=== PATIENT | male | born 1990 | race Caucasian/White ===

== ENCOUNTER 2018-09-16 11:20 | Day surgery (SDC) | payer OTHER ==
[~2018-09-16] VITALS: Ht 162.6 cm; Wt 77.3 kg
[2018-09-16] VITALS (15 sets, daily range): BP systolic 109–137; BP diastolic 62–88; PULSE 80–102; RESP 14–19; Ht 162.6 cm; Wt 77.3 kg
[~2018-09-16 11:20] MED LIST: SEVOFLURANE 15 MIN ONE
[2018-09-16] MEDS ORDERED: SOD CHLORIDE 0.9% 1,000 ML IV SCH (12:00)
[2018-09-16] MEDS ORDERED: CEFAZOLIN 2 GM/50 ML (PMX) 50 ML IVPB ONE (12:00)
[2018-09-16] MEDS ORDERED: BUPIVACAINE 0.5% (SDV) 30 ML INJ ONE (13:15)
[2018-09-16] MEDS ORDERED: LIDOCAINE 1% (MPF) 30 ML INJ ONE (13:16)
[2018-09-16] MEDS ORDERED: BUPIVACAINE 0.25% (MPF) 30 ML INJ ONE (13:16)
--- NOTE | 2018-09-16 13:16 | PREAC ---
Date/Time of Note Date/Time of Note DATE: 09/16/18 TIME: 13:15 Anesthesia Eval and Record Evaluation Time Pre-Procedure Interview DATE: 09/16/18 TIME: 13:15 Age 28 Sex male NPO: 8 hrs Preoperative diagnosis leg masses Planned procedure leg mass resection Past Medical History Past Medical History: None Surgery & Anesthesia Issues No known issue Meds Anticoagulation: No Beta Jose within 24 hr: No Reason Beta Jose not given: Pt. not on B-Jose No Active Prescriptions or Reported Meds Current Medications Sodium Chloride 1,000 ml @ 75 mls/hr [id number] IV ; Start 09/16/18 at 12:00; Stop 09/17/18 at 01:19 Meds reviewed: Yes Allergies Coded Allergies: No Known Drug Allergies (Unverified Allergy, Unknown, 09/16/18) Allergies Reviewed: Yes Labs/Studies Labs Reviewed: Reviewed by anesthesiologist test: N/A Pre-procedure Exam Last vitals Vital Signs Date Temp Pulse Resp B/P (MAP) Pulse Ox O2 O2 Flow FiO2 Time Delivery Rate 09/16/18 99.1 88 16 124/76 96 12:21 (92) Airway: Adequate mouth opening, Adequate thyromental dist Mallampati: Mallampati III Teeth: Normal Lung: Normal Heart: Normal ASA Physical Status ASA physical status: 1 Emergency: None Pre-operative Attestations Prior to commencing anesthesia and surgery, the patient was re-evaluated, there was verification of: *The patient's identity *The results of appropriate recent lab work and preoperative vital signs *The above evaluation not changing prior to induction *Anesthetic plan, risk benefits, alternative and complications discussed with patient/family; questions answered; patient/family understands, accepts and wishes to proceed. SAVANNA HOFFMAN DO Sep 16, 2018 13:16
[2018-09-16] MEDS ORDERED: LIDOCAINE 2% (MDV) 20 ML INJ ONE (13:20)
[2018-09-16] MEDS ORDERED: ETOMIDATE 20 MG INJ ONE (13:39)
[2018-09-16] MEDS ORDERED: LIDOCAINE 2% (SDV) 5 ML INJ ONE (13:39)
[2018-09-16] MEDS ORDERED: PROPOFOL 20 ML ONE (13:39)
[2018-09-16] MEDS ORDERED: MIDAZOLAM 1 MG/ML 2 ML INJ ONE (13:40)
[2018-09-16] MEDS ORDERED: ROPIVACAINE 0.5 % 30 ML VIAL ONE (13:47)
[2018-09-16] MEDS ORDERED: FENTAnyl 50 MCG/ML VIAL ONE (13:47)
[2018-09-16] MEDS ORDERED: DEXAMETHASONE 4 MG/ML 5 ML INJ ONE (13:48)
[2018-09-16] MEDS ORDERED: LIDOCAINE 1% (MDV) 20 ML INJ ONE (13:56)
[2018-09-16] MEDS ORDERED: CEFAZOLIN 1 GM INJ ONE (13:58)
[2018-09-16] MEDS ORDERED: ONDANSETRON 4 MG INJ ONE (14:00)
[2018-09-16] MEDS ORDERED: KETOROLAC 30 MG INJ ONE (14:14)
[2018-09-16] MEDS ORDERED: HYDROCODONE/APAP (5/325) TAB PO ONE (14:30)
--- NOTE | 2018-09-16 14:33 | OPR ---
Date/Time of Note Date/Time of Note DATE: 09/16/18 TIME: 14:29 Operative Report Procedure Date: Sep 16, 2018 Preoperative Diagnosis right arm multiple masses Postoperative Diagnosis same Operation/Procedure Performed 1. excision of right upper leg mass 20 cm mass 15 cm incision 2. localized adjacent tissue transfer with the use of skin flaps 30 sq cm defect of right leg 3. excision of right lower lateral thigh mass 6 cm mass 8 cm incision 4. localized adjacent tissue transfer with the use of skin flaps 16 sq cm defect of right leg 5. excision of right lower medial thigh mass 15 cm mass 11 cm incision 6. localized adjacent tissue transfer with the use of skin flaps 22 sq cm defect of right leg 7. therapeutic injection of subcutaneous local anesthesia Surgeon see signature line Worm Grower none Anesthesia Type: general Estimated Blood Loss: 10 - 50 ml's Transfusion none Specimen right upper leg mass right lower lateral thigh mass right lower medial thigh mass Grafts/Implants none Complications none Pt Condition Post Procedure: stable Indications This is a 28-year-old male with multiple masses all over his extremities. He requires surgical excision. Risks alternatives benefits and percent were discussed the patient. 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 Ample time was given for questions and all questions were answered. Patient expressed understanding of these risks and expressed consent to his operation. Procedure Description Patient is taken to the OR and prepped and draped in usual sterile fashion. Surgical time was performed. IV antibiotics are given. Transverse incision is made over the right upper thigh mass. Dissection with cautery was carried onto the mass and the mass was circumferentially excised. The masses are resected in multiple layers. Good hemostasis established. Due to large tissue defect localized adjacent to his transfer with these of skin flaps were performed. Multilayer closure with interrupted 3-0 Vicryl and skin ralph. Additional transverse incision was made to the right lateral lower thigh. Dissection with cautery was carried onto the mass and the masses are circumferentially excised. Good hemostasis established. Due to the large tissue defect localized adjacent to his transfer with these of skin flaps were performed. Multilayer closure with interrupted 3-0 Vicryl and skin ralph. Right lower medial thigh incision was made transversely over the mass. Dissection with cautery was carried onto the mass and the mass was CIRCUMFERENTIALLY excised. Good hemostasis status. Due to tissue defect localized adjacent to his transfer with these of skin flaps were performed. Multilayer closure with interrupted 0 Vicryl and skin ralph. Therapeutic contains local anesthesia was injected at the incision site. Dry dressings and Coban is placed over the leg. Evaristo SPEARS Sep 16, 2018 14:33
--- NOTE | 2018-09-16 14:46 | PAC ---
Date/Time of Note Date/Time of Note DATE: 09/16/18 TIME: 14:45 Post-Anesthesia Notes Post-Anesthesia Note Last documented vital signs Vital Signs Date Temp Pulse Resp B/P (MAP) Pulse Ox O2 O2 Flow FiO2 Time Delivery Rate 09/16/18 98 70 21 125/65 100 1445 Activity: WNL Respiratory function: WNL Cardiovascular function: WNL Mental status: Baseline Pain reasonably controlled: Yes Hydration appropriate: Yes Nausea/Vomiting absent: Yes SAVANNA HOFFMAN DO Sep 16, 2018 14:46
== END 2018-09-16 16:20 | disposition home or self-care (01) ==
LOC: SDS 11:20
PROVIDERS: ATTEND Surgery
DX: D17.23 Benign lipomatous neoplasm of skin and subcutaneous tissue of right leg (principal)
CPT/HCPCS: 88307; J0690; J1100; J1885; J2250; J2405; J2795; J3010

== ENCOUNTER 2018-11-11 06:21 | Day surgery (SDC) | payer OTHER ==
[2018-11-11] VITALS (15 sets, daily range): BP systolic 80–136; BP diastolic 48–91; PULSE 75–108; RESP 12–20; Ht 162.6 cm; Wt 79.0 kg
[~2018-11-11] VITALS: Ht 162.6 cm; Wt 79.0 kg
[2018-11-11] MEDS ORDERED: CEFAZOLIN 1 GM INJ ONE (07:00)
[2018-11-11] MEDS ORDERED: CEFAZOLIN 2 GM/50 ML (PMX) 50 ML IVPB SCH (08:00)
[2018-11-11] MEDS ORDERED: SOD CHLORIDE 0.9% 1,000 ML IV SCH (08:00)
[2018-11-11] MEDS ORDERED: BUPIVACAINE 0.25% (MPF) 30 ML INJ ONE (09:44)
--- NOTE | 2018-11-11 09:53 | PREAC ---
Date/Time of Note Date/Time of Note DATE: 11/11/18 TIME: 09:49 Anesthesia Eval and Record Evaluation Time Pre-Procedure Interview DATE: 11/11/18 TIME: 09:49 Age 28 Sex male NPO: 8 hrs Preoperative diagnosis mass on rt leg Planned procedure 3 mass removal rt leg Past Medical History Past Medical History: None Surgery & Anesthesia Issues Other issues, No known issue Meds Anticoagulation: No Beta Jose within 24 hr: No Reason Beta Jose not given: Pt. not on B-Jose No Active Prescriptions or Reported Meds Current Medications Sodium Chloride 1,000 ml @ 75 mls/hr [id number] IV Last administered on 11/11/18at 07:13; Admin Dose 75 MLS/HR; Start 11/11/18 at 08:00; Stop 11/11/18 at 20:00 Meds reviewed: Yes Allergies Coded Allergies: No Known Drug Allergies (Unverified Allergy, Unknown, 11/11/18) Allergies Reviewed: Yes Labs/Studies Labs Reviewed: Reviewed by anesthesiologist test: N/A Pre-procedure Exam Last vitals Vital Signs Date Temp Pulse Resp B/P (MAP) Pulse Ox O2 O2 Flow FiO2 Time Delivery Rate 11/11/18 97.8 75 16 126/91 97 07:05 (103) Airway: Adequate mouth opening Mallampati: Mallampati II Teeth: Normal Lung: Normal Heart: Normal ASA Physical Status ASA physical status: 1 Emergency: None Planned Anesthetic General/MAC: ETT Pre-operative Attestations Prior to commencing anesthesia and surgery, the patient was re-evaluated, there was verification of: *The patient's identity *The results of appropriate recent lab work and preoperative vital signs *The above evaluation not changing prior to induction *Anesthetic plan, risk benefits, alternative and complications discussed with patient/family; questions answered; patient/family understands, accepts and wishes to proceed. SELENE HOPSON MD Nov 11, 2018 09:53
[2018-11-11] MEDS ORDERED: FENTAnyl 50 MCG/ML VIAL ONE (10:01)
[2018-11-11] MEDS ORDERED: HYDROmorphONE 2 MG/ML SYG ONE (10:01)
[2018-11-11] MEDS ORDERED: SUCCINYLCHOLINE CHLORIDE 100 MG/5 ML SYG IV ONE (10:01)
[2018-11-11] MEDS ORDERED: PROPOFOL 20 ML ONE (10:01)
[2018-11-11] MEDS ORDERED: ONDANSETRON 4 MG INJ ONE (10:36)
--- NOTE | 2018-11-11 10:57 | OPR ---
Date/Time of Note Date/Time of Note DATE: 11/11/18 TIME: 10:53 Operative Report Procedure Date: Nov 11, 2018 Preoperative Diagnosis multiple tumors over the body Postoperative Diagnosis same Operation/Procedure Performed 1. excision of right proximal leg tumor 15 cm incision 20 cm tumor 2. localized adjacent tissue transfer with the use of skin flaps 30 sq cm defect of right upper leg 3. excision of right middle leg tumor 15 cm incision 22 cm tumor 4. localized adjacent tissue transfer with the use of skin flaps 30 sq cm defect of right middle leg 5. excision of right distal leg tumor 15 cm incision 23 cm tumor 6. localized adjacent tissue transfer with the use of skin flaps 30 sq cm defect of right distal leg 7. therapeutic injection of subcutaneous local anesthesia Surgeon see signature line Molded Candles Wicker none Anesthesia Type: general Estimated Blood Loss: 10 - 50 ml's Transfusion none Specimen right proximal leg tumor right middle leg tumor right distal leg tumor Grafts/Implants none Complications none Pt Condition Post Procedure: stable Indications This is a 28-year-old male with multiple leg tumors. He request surgical excision. Risks alternatives benefits and personally discussed the patient. Patient expressed understanding and requests surgical excision of the tumors. Patient also understands that he has multiple lung tumors and may need multiple operations to manage these tumors. Procedure Description Patient is taken to the OR and prepped and draped in usual sterile fashion. Surgical time was performed. IV antibiotics given. Transverse incision was made over the right proximal tumor. Dissection with cautery scant to tumor and tumor circumferentially excised. Good hemostasis status. Due to very large tissue defect localized adjacent to his transfer with these of skin flaps performed. Multilayer closure with interrupted 3-0 Vicryl and skin ralph. Therapy secondary to local anesthesia injected at the incision site. Attention was then paid to the right middle leg tumor. Transverse incision at the 15 toy de. Dissection with cardioscan to the tumor and the tumor circumferentially excised. Good hemostasis status. Due to tissue defect localization system extremities disc and flexes performed. Multilayer closure with interrupted 0 Vicryl and skin ralph. Therapeutic taste local anesthesia injected at incision site. Attention was then paid to the distal right leg tumor. Chest di sease with the 15 blade. Dissection with cautery segments of the tumor and the tumor circumferentially excised. Good hemostasis status. Due to the tissue defect localization just transfer with his skin flaps was performed. Multilayer closure with interrupted 3-0 Vicryl and skin ralph. Therapeutic subcutaneous local anesthesia was injected at the incision site. Dry dressings and pressure dressing and wrap with Caesar bandage was performed to augment hemostasis. Evaristo SPEARS Nov 11, 2018 10:57
[2018-11-11] MEDS ORDERED: HYDROmorphONE 1 MG/5 ML IV SYRINGE IV PRN ×2 (11:00)
[2018-11-11] MEDS ORDERED: DIPHENHYDRAMINE 50 MG INJ IV PRN (11:00)
[2018-11-11] MEDS ORDERED: HYDROCODONE/APAP (10/325) TAB PO ONE (11:00)
[2018-11-11] MEDS ORDERED: EPHEDrine SULFATE 50 MG/5 ML SYG IV PRN (11:00)
[2018-11-11] MEDS ORDERED: hydrALAzine 20 MG INJ IV PRN (11:00)
[2018-11-11] MEDS ORDERED: METOCLOPRAMIDE 10 MG INJ IV PRN (11:00)
[2018-11-11] MEDS ORDERED: ONDANSETRON 4 MG INJ IV PRN (11:00)
[2018-11-11] MEDS ORDERED: LABETALOL HCL 20MG INJ IV PRN (11:00)
[2018-11-11] MEDS ORDERED: MEPERIDINE 25 MG INJ IV PRN (11:00)
--- NOTE | 2018-11-11 11:20 | PAC ---
Date/Time of Note Date/Time of Note DATE: 11/11/18 TIME: 11:20 Post-Anesthesia Notes Post-Anesthesia Note Last documented vital signs Vital Signs Date Temp Pulse Resp B/P (MAP) Pulse Ox O2 O2 Flow FiO2 Time Delivery Rate 11/11/18 106 20 135/72 100 Mask 8.0 11:15 (93) 11/11/18 98.0 11:05 Activity: WNL Respiratory function: WNL Cardiovascular function: WNL Mental status: Baseline Pain reasonably controlled: Yes Hydration appropriate: Yes Nausea/Vomiting absent: No SELENE HOPSON MD Nov 11, 2018 11:20
== END 2018-11-11 15:20 | disposition home or self-care (01) ==
LOC: SDS 06:21
PROVIDERS: ATTEND Surgery
DX: D17.23 Benign lipomatous neoplasm of skin and subcutaneous tissue of right leg (principal)
CPT/HCPCS: 14301; 14302; 88307; J1170; J2405; J3010; Z7512; Z7610; J0690

== ENCOUNTER 2019-03-24 05:25 | Day surgery (SDC) | payer OTHER ==
[2019-03-23 15:25] VITALS: BMI 29.9
[~2019-03-24] VITALS: Ht 162.6 cm; Wt 78.6 kg
[2019-03-24] VITALS (13 sets, daily range): BP systolic 129–146; BP diastolic 70–91; PULSE 91–110; RESP 11–20; Ht 162.6 cm; Wt 78.6 kg
[2019-03-24] MEDS ORDERED: CEFAZOLIN 2 GM/50 ML (PMX) 50 ML IVPB ONE (06:30)
[2019-03-24] MEDS ORDERED: SOD CHLORIDE 0.9% 1,000 ML IV SCH (06:30)
[2019-03-24] MEDS ORDERED: BUPIVACAINE 0.25% (MPF) 30 ML INJ ONE ×2 (07:54→09:31)
[2019-03-24] MEDS ORDERED: HYDROmorphONE 1 MG/5 ML IV SYRINGE IV PRN ×3 (08:30)
[2019-03-24] MEDS ORDERED: ONDANSETRON 4 MG INJ IV PRN (08:30)
[2019-03-24] MEDS ORDERED: MEPERIDINE 25 MG INJ IV PRN (08:30)
[2019-03-24] MEDS ORDERED: DIPHENHYDRAMINE 50 MG INJ IV PRN (08:30)
[2019-03-24] MEDS ORDERED: PROPOFOL 20 ML ONE (08:44)
[2019-03-24] MEDS ORDERED: FENTAnyl 50 MCG/ML VIAL ONE (08:44)
[2019-03-24] MEDS ORDERED: MIDAZOLAM 1 MG/ML 2 ML INJ ONE (08:44)
[2019-03-24] MEDS ORDERED: SUCCINYLCHOLINE CHLORIDE 100 MG/5 ML SYG IV ONE (08:44)
[2019-03-24] MEDS ORDERED: LIDOCAINE 1% (MDV) 20 ML INJ ONE (08:45)
[2019-03-24] MEDS ORDERED: ONDANSETRON 4 MG INJ ONE (08:54)
[2019-03-24] MEDS ORDERED: ALBUTEROL 0.083% (NEB) 2.5 MG/3 ML AMP ONE (09:07)
[2019-03-24] MEDS ORDERED: KETOROLAC 30 MG INJ ONE (09:07)
[2019-03-24] MEDS ORDERED: DEXAMETHASONE 4 MG/ML 5 ML INJ ONE (09:07)
[2019-03-24] MEDS ORDERED: CEFAZOLIN 1 GM INJ ONE (09:20)
[2019-03-24] MEDS ORDERED: SUGAMMADEX SODIUM 200 MG/2 ML VIAL IV ONE (09:30)
[2019-03-24] MEDS ORDERED: MEPERIDINE 100 MG INJ ONE (09:46)
[2019-03-24] MEDS ORDERED: LIDOCAINE 2% (SDV) 5 ML INJ ONE (09:51)
[2019-03-24] MEDS ORDERED: ROCURONIUM 50 MG INJ ONE (09:52)
[2019-03-24] MEDS ORDERED: HYDROCODONE/APAP (5/325) TAB PO ONE (10:00)
== END 2019-03-24 15:11 | disposition home or self-care (01) ==
LOC: SDS 05:25
PROVIDERS: ATTEND Surgery
DX: D17.24 Benign lipomatous neoplasm of skin and subcutaneous tissue of left leg (principal)
CPT/HCPCS: 88307; J0690; J1100; J1885; J2175; J2250; J2405; J3010